=== PATIENT | female | born 1995 | race Caucasian/White ===

== ENCOUNTER 2017-08-29 18:33 | Emergency (ER) | payer SELFPAY ==
[2017-08-29 18:37] VITALS: BP 130/73; PULSE 90; TEMP 98.4; BMI 23.5
--- NOTE | 2017-08-29 18:40 | PDOC ---
History of Present Illness - General Chief Complaint: Cold Symptoms Stated Complaint: PAIN Time Seen by Provider: 08/29/17 18:39 History Source: Patient Exam Limitations: No Limitations - History of Present Illness Initial Comments: CHIEF COMPLAINT: 21 y/o afebrile female c/o chills, body aches and right sided back pain x 4 days. HISTORY OF PRESENT ILLNESS: The patient denies taking a temperature, denies cough, earache, runny nose, n/v/d, CP, SOB, abd pain, hematuria, dysuria. She was taking tylenol and motrin for her symptoms but hasn't taken anything today. Vital signs on arrival are within normal limits. REVIEW OF SYSTEMS: GENERAL/CONSTITUTIONAL: +chills. No fever. +body aches. No weakness. No weight change. HEAD, EYES, EARS, NOSE AND THROAT: No change in vision. No ear pain or discharge. No sore throat. CARDIOVASCULAR: No chest pain or shortness of breath. RESPIRATORY: No cough, wheezing, or hemoptysis. GASTROINTESTINAL: No abd pain, nausea, vomiting, diarrhea. GENITOURINARY: No dysuria, frequency, or change in urination. MUSCULOSKELETAL: +right sided back pain. No joint or muscle swelling or pain. No neck pain. SKIN: No rash or easy bruising. NEUROLOGIC: No headache, vertigo, loss of consciousness, or loss of sensation. PHYSICAL EXAM: GENERAL: The patient is awake, alert, and fully oriented, in no acute distress. She is well appearing, ambulatory, in NAD or obvious discomfort. HEAD: Normal with no signs of trauma. ENT: Pupils equal, round and reactive to light, extraocular movements intact, sclera anicteric, conjunctiva clear. Neck supple. No tonsilar erythema, edema or exudate. LUNGS: Clear to auscultation bilaterally. Normal excursion. No respiratory distress or use of accessory muscles. CV: RRR, S1/S2, no MRG. Cap refill < 2 sec. ABDOMEN: Soft, non-distended, non-tender even to deep palpation, no hepatomegaly or splenomegaly, no masses. BACK: ?right CVA TTP. No other reproducible pain. EXTREMITIES: Normal range of motion, no edema. NEUROLOGICAL: Normal speech, normal gait. CN II-XII grossly intact. PSYCH: Normal mood, normal affect. SKIN: Warm, dry, normal turgor, no rashes or lesions noted. Past History - Past Medical History Allergies/Adverse Reactions: Allergies Allergy/AdvReac Type Severity Reaction Status Date / Time No Known Allergies Allergy Verified 08/29/17 18:33 Home Medications: Ambulatory Orders Nitrofurantoin Monohyd/M-Cryst [Macrobid -] 100 mg PO BID #14 capsule 08/29/17 COPD: No - Suicide/Smoking/Psychosocial Hx Smoking History: Never smoked Have you smoked in the past 12 months: No Information on smoking cessation initiated: No Hx Alcohol Use: No Drug/Substance Use Hx: No Substance Use Type: None *Physical Exam - Vital Signs Last Vital Signs Temp Pulse Resp BP Pulse Ox 98.4 F 90 18 130/73 100 08/29/17 18:34 08/29/17 18:34 08/29/17 18:34 08/29/17 18:34 08/29/17 18:34 Medical Decision Making - Medical Decision Making A/P: 21 y/o female with viral type symptoms, unremarkable physical exam who appears well. Plan is as follows: 1. hcg/UA/culture hcg - negative UA with +nitrite, +blood and +WBCs Will treat for UTI. Pt instructed to return to the ER with any worsening or concerning symptoms. The patient verbalizes understanding of all instructions, has no further questions and is awaiting discharge. *DC/Admit/Observation/Transfer Diagnosis at time of Disposition: UTI (urinary tract infection) Qualifiers: Urinary tract infection type: acute cystitis Hematuria presence: with hematuria Qualified Code(s): N30.01 - Acute cystitis with hematuria - Discharge Dispostion Disposition: HOME Condition at time of disposition: Good - Prescriptions Prescriptions: Nitrofurantoin Monohyd/M-Cryst [Macrobid -] 100 mg PO BID #14 capsule - Referrals - Patient Instructions Printed Discharge Instructions: DI for Urinary Tract Infection (UTI) Additional Instructions: Discharge Instructions: -You have a urinary tract infection -A prescription for antibiotics has been sent to your pharmacy -Please drink at least 64oz of water daily -Return to the ER with any worsening or concerning symptoms - Post Discharge Activity Forms/Work/School Notes: Back to Work
[2017-08-29 19:14] LABS: URINE APPEARANCE CLOUDY; URINE BILIRUBIN NEGATIVE (<2.0 mg/dL); URINE BLOOD 1+ (NEGATIVE); URINE COLOR YELLOW; URINE GLUCOSE (UA) NEGATIVE (NEGATIVE); URINE KETONE NEGATIVE (NEGATIVE); URINE NITRITE POSITIVE (NEGATIVE); URINE UROBILINOGEN 4.0 E.U/dl mg/dL (0.2-1.0)
[2017-08-29 19:17] LABS: URINE LEUK ESTERASE 3+ (NEGATIVE); URINE PROTEIN 1+ (NEGATIVE)
[2017-08-29 19:18] LABS: EPI CELLS RARE /HPF (FEW); URINE BACTERIA RARE /hpf (NONE SEEN); URINE MUCUS RARE
[2017-08-29] MEDS ORDERED: NITROFURANTOIN MACROCRYSTAL 50 MG CAPSULE (FP) ONE ×2 (19:27→19:28)
[2017-08-29] MEDS ORDERED: NITROFURANTOIN MACROCRYSTAL 50 MG CAPSULE (FP) PO SCH (19:30)
== END 2017-08-29 19:30 | disposition home or self-care (01) ==
LOC: JERFT 18:33
DX: N30.01 Acute cystitis with hematuria (principal)
CPT/HCPCS: 81003; 81015; 84703; 87086; 87186; 99281-25

== ENCOUNTER 2017-09-16 20:55 | Inpatient (IN) | payer SELFPAY ==
[2017-09-16 21:14] VITALS: BMI 23.5
--- NOTE | 2017-09-16 21:28 | PDOC ---
History of Present Illness - General History Source: Patient Exam Limitations: No Limitations - History of Present Illness Initial Comments: 09/17/17 00:09 Patient is a 21 year old female with no significant past medical history who presents to the ED with complaints of right flank pain that began yesterday. Patient reports being diagnosed with UTI 3 weeks ago, stating she was prescribed antibiotics. She reports experiencing relief after finishing prescription with no further symptoms. Patient reports experiencing sudden right flank pain yesterday afternoon that she states was not severe, making her pay no serious mind to it. She reports waking up this morning with increased right flank pain, which she states began to worry her, prompting her to come into the ED for further evaluation. Denies chest pain, Sob. Denies nausea, vomiting. Denies trauma to affected area. Denies contact with sick individuals, out of state travelling. Denies any other symptoms. Allergies: None Social history: No smoking. No alcohol. No illicit drugs. Surgical history: None PMD: None <Armando Hong - Last Filed: 09/17/17 00:09> <Maggie Mack - Last Filed: 09/17/17 00:50> - General Chief Complaint: Pain Stated Complaint: POSSIBLE UTI Time Seen by Provider: 09/16/17 21:27 Past History <Armando Hong - Last Filed: 09/17/17 00:09> - Past Medical History COPD: No - Suicide/Smoking/Psychosocial Hx Smoking History: Never smoked Have you smoked in the past 12 months: No Hx Alcohol Use: No Drug/Substance Use Hx: No Substance Use Type: None <Maggie Mack - Last Filed: 09/17/17 00:50> - Past Medical History Allergies/Adverse Reactions: Allergies Allergy/AdvReac Type Severity Reaction Status Date / Time No Known Allergies Allergy Verified 09/16/17 21:11 Home Medications: Ambulatory Orders Nitrofurantoin Monohyd/M-Cryst [Macrobid -] 100 mg PO BID #14 capsule 08/29/17 Review of Systems - Review of Systems Able to Perform ROS?: Yes Comments:: 09/17/17 00:09 GENERAL/CONSTITUTIONAL: No fever or chills. No weakness. HEAD, EYES, EARS, NOSE AND THROAT: No change in vision. No ear pain or discharge. No sore throat. CARDIOVASCULAR: No chest pain or shortness of breath. RESPIRATORY: No cough, wheezing, or hemoptysis. GASTROINTESTINAL: No nausea, vomiting, diarrhea or constipation. GENITOURINARY: No dysuria, frequency, or change in urination. MUSCULOSKELETAL: +Right flank pain. No joint swelling or pain. No neck or back pain. SKIN: No rash NEUROLOGIC: No headache, vertigo, loss of consciousness, or change in strength/ sensation. ENDOCRINE: No increased thirst. No abnormal weight change. HEMATOLOGIC/LYMPHATIC: No anemia, easy bleeding, or history of blood clots. ALLERGIC/IMMUNOLOGIC: No hives or skin allergy. <Armando Hong - Last Filed: 09/17/17 00:09> *Physical Exam - Vital Signs Last Vital Signs Temp Pulse Resp BP Pulse Ox 100.2 F H 107 H 18 140/73 100 09/16/17 21:12 09/16/17 21:12 09/16/17 21:12 09/16/17 21:12 09/16/17 21:12 - Physical Exam Comments: 09/17/17 00:09 GENERAL: Awake, alert, and fully oriented, in no acute distress HEAD: No signs of trauma EYES: PERRLA, EOMI, sclera anicteric, conjunctiva clear ENT: Auricles normal inspection, hearing grossly normal, nares patent, oropharynx clear without exudates. Moist mucosa NECK: Normal ROM, supple, no lymphadenopathy, JVD, or masses LUNGS: Breath sounds equal, clear to auscultation bilaterally. No wheezes, and no crackles HEART: Regular rate and rhythm, normal S1 and S2, no murmurs, rubs or gallops ABDOMEN: +Superpubic mild tenderness. Soft, nontender, normoactive bowel sounds. No guarding, no rebound. No masses MUSCULOSKELETAL: +Right flank pain. EXTREMITIES: Normal range of motion, no edema. No clubbing or cyanosis. No cords, erythema, or tenderness NEUROLOGICAL: Cranial nerves II through XII grossly intact. Normal speech, normal gait SKIN: +Warm to touch. Dry, normal turgor, no rashes or lesions noted. <Armando Hong - Last Filed: 09/17/17 00:09> - Vital Signs Last Vital Signs Temp Pulse Resp BP Pulse Ox 100.2 F H 107 H 18 140/73 100 09/16/17 21:12 09/16/17 21:12 09/16/17 21:12 09/16/17 21:12 09/16/17 21:12 <Maggie Mack - Last Filed: 09/17/17 00:50> ED Treatment Course - LABORATORY CBC & Chemistry Diagram: 09/16/17 21:30 09/16/17 21:30 - ADDITIONAL ORDERS Additional order review: Laboratory Results 09/16/17 09/16/17 21:30 21:27 Sodium 134 L Potassium 3.6 Chloride 103 Carbon Dioxide 24 Anion Gap 7 L BUN 8 Creatinine 0.7 Creat Clearance w eGFR > 60 Random Glucose 118 H Calcium 8.7 Total Bilirubin 0.4 AST 14 L ALT 25 Alkaline Phosphatase 77 Total Protein 7.6 Albumin 3.9 Urine Color Yellow Urine Appearance Cloudy Urine pH 6.0 Ur Specific [place] 1.010 Urine Protein 1+ H Urine Glucose (UA) Negative Urine Ketones Negative Urine Blood 2+ H Urine Nitrite Positive Urine Bilirubin Negative Urine Urobilinogen Negative Ur Leukocyte Esterase 3+ H Urine WBC (Auto) 847 Urine RBC (Auto) 7 Urine Bacteria Moderate Urine Mucus Rare Urine HCG, Qual Negative 09/16/17 21:30 RBC 4.38 MCV 80.4 MCHC 34.5 RDW 19.9 H MPV 7.3 L Neutrophils % 84.4 H Lymphocytes % 7.4 L Monocytes % 7.9 Eosinophils % 0.1 Basophils % 0.2 - Medications Given in the ED: ED Medications Discontinued Medications Generic Name Dose Route Start Last Admin Trade Name Freq PRN Reason Stop Dose Admin Acetaminophen 1,000 mg 09/16/17 22:42 09/16/17 22:48 Tylenol - PO 09/16/17 22:43 1,000 mg ONCE ONE Administration Ceftriaxone Sodium 1 mg/ 50 mls @ 100 mls/hr 09/16/17 21:29 09/16/17 21:56 Dextrose IVPB 09/16/17 21:58 Not Given ONCE ONE Ceftriaxone Sodium 1,000 mg/ 50 mls @ 100 mls/hr 09/16/17 21:36 09/16/17 21: 56 Dextrose IVPB 09/16/17 21:58 100 mls/hr ONCE ONE Administration Ibuprofen 600 mg 09/16/17 21:32 09/16/17 21:56 Motrin - PO 09/16/17 21:33 600 mg ONCE ONE Administration <Armando Hong - Last Filed: 09/17/17 00:09> - LABORATORY CBC & Chemistry Diagram: 09/16/17 21:30 09/16/17 21:30 <Maggie Mack - Last Filed: 09/17/17 00:50> Medical Decision Making - Medical Decision Making 09/16/17 21:30 Pt comes with fever and UTI symptoms. She was here for cystitis 1 month ago and at the time she was treated with macrobid BID x 7 days. Now with repeat symptoms. The E.coli that grew in her urine last time was not resistant to the macrobid. Pt will have UA and culture sent again today, as well as basic blood lab tests. We will treat with rocephin in the ER and likely send pt home with keflex. <Maggie Mack - Last Filed: 09/17/17 00:50> *DC/Admit/Observation/Transfer - Attestations Scribe Attestion: 09/17/17 00:10 Documentation prepared by Armando Hong, acting as medical secretary for Maggie Mack MD/DO. <Armando Hong - Last Filed: 09/17/17 00:09> - Discharge Dispostion Admit: Yes <Maggie Mack - Last Filed: 09/17/17 00:50> Diagnosis at time of Disposition: Pyelonephritis, Kidney stones, UTI (urinary tract infection) - Discharge Dispostion Condition at time of disposition: Guarded
[2017-09-16] MEDS ORDERED: CEFTRIAXONE 1 MG in DEXTROSE 5%-WATER - 50 ML IVPB ONE (21:29)
[2017-09-16] MEDS ORDERED: IBUPROFEN 600 MG TABLET (FP) PO ONE ×2 (21:32→21:52)
[2017-09-16] MEDS ORDERED: CEFTRIAXONE 1 GM/50 ML BAG ONE (21:36)
[2017-09-16] MEDS ORDERED: CEFTRIAXONE 1,000 MG in DEXTROSE 5%-WATER - 50 ML IVPB ONE (21:36)
[2017-09-16 21:38] LABS: HCG,QUALITATIVE URINE NEGATIVE
[2017-09-16 21:42] LABS: URINE APPEARANCE CLOUDY; URINE BILIRUBIN NEGATIVE (<2.0 mg/dL); URINE COLOR YELLOW; URINE GLUCOSE (UA) NEGATIVE (NEGATIVE); URINE KETONE NEGATIVE (NEGATIVE); URINE NITRITE POSITIVE (NEGATIVE); URINE UROBILINOGEN NEGATIVE mg/dL (0.2-1.0)
[2017-09-16 21:47] LABS: URINE LEUK ESTERASE 3+ (NEGATIVE); URINE PROTEIN 1+ (NEGATIVE)
[2017-09-16 21:56] LABS: BASO % 0.2 % (0-2.0); EOS % 0.1 % (0-4.5); HEMATOCRIT 35.2 % (32.4-45.2); HEMOGLOBIN 12.1 GM/dL (10.7-15.3); LYMPH % 7.4 % (8-40); MCH 27.7 pg (25.7-33.7); MCHC 34.5 g/dl (32.0-36.0); MEAN CELL VOLUME 80.4 fl (80-96); MEAN PLT VOLUME 7.3 fl (7.5-11.1); MONO % 7.9 % (3.8-10.2); NEUT % 84.4 % (42.8-82.8); PLATELET COUNT 254 K/MM3 (134-434); RBC 4.38 M/mm3 (3.60-5.2); RDW 19.9 % (11.6-15.6); WHITE BLOOD COUNT 12.2 K/mm3 (4.0-10.0)
[2017-09-16 22:17] LABS: URINE BACTERIA MODERATE /hpf (NONE SEEN); URINE MUCUS RARE
[2017-09-16 22:26] LABS: ALBUMIN 3.9 g/dl (3.4-5.0); ANION GAP 7 (8-16); BILIRUBIN,TOTAL 0.4 mg/dL (0.2-1.0); BLOOD UREA NITROGEN 8 mg/dL (7-18); CALCIUM 8.7 mg/dL (8.5-10.1); CHLORIDE 103 mmol/L (98-107); CO2 24 mmol/L (21-32); CREATININE 0.7 mg/dL (0.55-1.02); GLUCOSE,RANDOM 118 mg/dL (74-106); POTASSIUM 3.6 mmol/L (3.5-5.1); SGOT/AST 14 U/L (15-37); SGPT/ALT 25 U/L (12-78); SODIUM 134 mmol/L (136-145); TOT PROT 7.6 g/dl (6.4-8.2)
[2017-09-16 22:27] LABS: ALK PHOS 77 U/L (45-117)
[2017-09-16] MEDS ORDERED: ACETAMINOPHEN 500 MG TABLET (FP) PO ONE (22:42)
--- NOTE | 2017-09-17 01:25 | HP ---
CHIEF COMPLAINT: R flank pain PCP: none HISTORY OF PRESENT ILLNESS: 21yo healthy young woman who presents with 1 day of R flank and nausea. Patient was last here on 08/29 for symptomatic UTI and completed a 7 day course of Macrobid 100mg BID. Patient denies missing any doses of antibiotics. She reports her symptoms resolved with the completion of the abx course. She was at her [employer] when yesterday while at work she had acute onset R flank pain with some nausea, but no emesis. She denies any prior UTIs or urinary abnormalities. No fever or chills. LMP 08/19/17. Last sexually active 1 month ago. No h/o STIs. ER course was notable for: (1) Tmax 100.2, HR 107 (2) UA c/w infection: pyuria with 3+ LE (3) Renal U/S: No hydronephrosis bilaterally, R kidney stone w/ 2 x adjacent 1cm foci of increased echogenicity w/o distal acoustical shadowing, equivocal non-obstructing R renal calculi Recent Travel: none PAST MEDICAL HISTORY: see above PAST SURGICAL HISTORY: Social History: Smoking: never Alcohol: none Drugs: none Family History: no family h/o renal stones Allergies: NKDA HOME MEDICATIONS: Home Medications Medication Instructions Recorded Nitrofurantoin Monohyd/M-Cryst 100 mg PO BID #14 capsule 08/29/17 [Macrobid -] REVIEW OF SYSTEMS CONSTITUTIONAL: Absent: fever, chills, diaphoresis, generalized weakness, malaise, loss of appetite, weight change HEENT: Absent: rhinorrhea, nasal congestion, throat pain, throat swelling, difficulty swallowing, mouth swelling, ear pain, eye pain, visual changes CARDIOVASCULAR: Absent: chest pain, syncope, palpitations, irregular heart rate, lightheadedness , peripheral edema RESPIRATORY: Absent: cough, shortness of breath, dyspnea with exertion, orthopnea, wheezing, stridor, hemoptysis GASTROINTESTINAL: +nausea Absent: abdominal pain, abdominal distension, vomiting, diarrhea, constipation, melena, hematochezia GENITOURINARY: +dysuria, R flank pain Absent: frequency, urgency, hesitancy, hematuria, genital pain MUSCULOSKELETAL: Absent: myalgia, arthralgia, joint swelling, back pain, neck pain SKIN: Absent: rash, itching, pallor HEMATOLOGIC/IMMUNOLOGIC: Absent: easy bleeding, easy bruising, lymphadenopathy, frequent infections ENDOCRINE: Absent: unexplained weight gain, unexplained weight loss, heat intolerance, cold intolerance NEUROLOGIC: Absent: headache, focal weakness or paresthesias, dizziness, unsteady gait, seizure, mental status changes, bladder or bowel incontinence PSYCHIATRIC: Absent: anxiety, depression, suicidal or homicidal ideation, hallucinations. PHYSICAL EXAMINATION Vital Signs - 24 hr 09/16/17 21:12 Temperature 100.2 F H Pulse Rate 107 H Respiratory 18 Rate Blood Pressure 140/73 O2 Sat by Pulse 100 Oximetry (%) GENERAL: lying comfortably in bed, aaox3, nad HEENT: PERRLA, sclera anicteric, conjunctiva clear, oropharynx clear without exudates, mmm LUNGS: CTAB HEART: rrr, normal s1/s2, no m/r/g ABDOMEN: soft, ntnd, +positive bowel sounds : +suprapubic ttp, R CVA tenderness LOWER EXTREMITIES: wwp, no peripheral edema CBC, BMP 09/16/17 21:30 09/16/17 21:30 Urine Color Yellow 09/16/17 21: Urine Appearance Cloudy 09/16/17 21:27 Urine pH 6.0 (5.0-8.0) 09/16/17 21: Ur Specific [place] 1.010 (1.001-1.035) 09/16/17 21: Urine Protein 1+ (NEGATIVE) H 09/16/17 21:27 Urine Glucose (UA) Negative (NEGATIVE) 09/16/17 21:27 Urine Ketones Negative (NEGATIVE) 09/16/17 21:27 Urine Blood 2+ (NEGATIVE) H 09/16/17 21: Urine Nitrite Positive (NEGATIVE) 09/16/17 21:27 Urine Bilirubin Negative (<2.0 mg/dL) 09/16/17 21:27 Ur Leukocyte Esterase 3+ (NEGATIVE) H 09/16/17 21:27 Urine Bacteria Moderate /hpf (NONE SEEN) 09/16/17 21: Urine Mucus Rare 09/16/17 21:27 ASSESSMENT/PLAN: 21yo young woman with recent PMH of UTI s/p 7 day abx course with resolution of symptoms who presents with 1 day of R flank plan and found to be septic (Tmax 100.2, HR107) possibly 2/2 pyelonephritis c/b R renal stones. #sepsis 2/2 pyelonephritis with possible 2x 1cm Renal calculi -Urology consulted -CT A/P w/o contrast to evaluate possible R calculi -pain control with Tylenol PRN, Morphine PRN -Zofran PRN for nausea -IVF of NS@150cc/hr -Ceftriaxone 2gm IVP Daily -f/u Urine and blood cultures -f/u Gonorrhea/Chlamydia #FEN NS@150cc/hr lytes wnl Regular diet #DISPO: m/s FULL code Visit type - Emergency Visit Emergency Visit: Yes ED Registration Date: 09/17/17 Care time: The patient presented to the Emergency Department on the above date and was hospitalized for further evaluation of their emergent condition. - New Patient This patient is new to me today: Yes Date on this admission: 09/17/17 - Critical Care Critical Care patient: No Hospitalist Screening - Colonoscopy Questionnaire Colonoscopy Questionnaire: Colonoscopy Questionnaire - Patient: 50 - 75 years old and never had a screening colonoscopy: No History of colon or rectal polyps, or CA: Unknown History of IBD, Crohn's disease or UC: Unknown History of abdominal radiation therapy as a child: Unknown - Relative: 1 with colon or rectal CA, or polyps at age 60 or younger: Unknown Colon or rectal CA diagnosed at age 45 or younger: Unknown Multiple relatives with colon or rectal CA: Unknown - Outcome: Screening Result: Negative Screen
[2017-09-17] MEDS ORDERED: ONDANSETRON 4 MG/2 ML VIAL IVPUSH PRN (03:00)
[2017-09-17] MEDS ORDERED: SODIUM CHLORIDE 1,000 ML IV SCH (03:00)
[2017-09-17] MEDS ORDERED: morphine SULFATE 4 MG/ML VIAL IVPUSH PRN (03:32)
[2017-09-17] MEDS: SODIUM CHLORIDE 1,000 ML IV SCH ×3 (04:06→20:04)
--- NOTE | 2017-09-17 04:37 | PN ---
Teaching Attending Note Name of Resident: Kita Iqbal ATTENDING PHYSICIAN STATEMENT I saw and evaluated the patient. Chart, data reviewed. I reviewed the resident's note and discussed the case with the resident. I agree with the resident's findings and plan as documented. SUBJECTIVE: 21yo healthy young woman c/o with 1 day of R flank and nausea, low grade fevers. Recently completed a 7 day course of Macrobid 100mg BID for cystitis. Denied any allergies to antibiotics. OBJECTIVE: Last Vital Signs Temp Pulse Resp BP Pulse Ox 98.3 F 93 H 18 121/75 100 09/17/17 01:04 09/17/17 01:04 09/17/17 01:04 09/17/17 01:04 09/17/17 01:04 General- nad, nontoxic appearing heent- moist oral mucosa neck -supple cv -s1+s2+rrr chest - cta b/l abdomen -soft, BS+ , right flank tenderness skin- no rashes Abnormal Lab Results 09/16/17 09/16/17 09/16/17 21:27 21:30 21:30 WBC 12.2 H RDW 19.9 H MPV 7.3 L Neutrophils % 84.4 H Lymphocytes % 7.4 L Sodium 134 L Anion Gap 7 L Random Glucose 118 H AST 14 L Urine Protein 1+ H Urine Blood 2+ H Ur Leukocyte Esterase 3+ H renal u/s -equivocal visualization of 2 renal calculi 1cm diameter ASSESSMENT AND PLAN: #Sepsis 2/2 right sided pyelonephritis with possible nephrolithiasis. -admit to med/surg -blood cultures x2 -urine culture -lactate level -CT scan of abdomen/pelvis to better evaluate for nephrolithiasis -ceftriaxone 2g IV q24hrs -if nephrolithiasis, will obtain urology consult -IV fluid hydration -heparin sc for dvt prophylaxis
[2017-09-17] MEDS: ACETAMINOPHEN 325 MG TABLET (FP) PO PRN ×2 (04:42→20:52)
--- NOTE | 2017-09-17 08:37 | PN ---
Physical Exam: SUBJECTIVE: Patient seen and examined Patient is comfortable but c/o CVA tenderness OBJECTIVE: Vital Signs Temperature 98.7 F 09/17/17 06:20 Pulse Rate 93 H 09/17/17 03:30 Respiratory Rate 18 09/17/17 03:30 Blood Pressure 121/75 09/17/17 03:30 O2 Sat by Pulse Oximetry (%) 100 09/17/17 01:04 GENERAL: The patient is awake, alert, and fully oriented, in no acute distress. HEAD: Normal with no signs of trauma. EYES: PERRL, extraocular movements intact, sclera anicteric, conjunctiva clear. ENT: Ears normal, oropharynx clear without exudates, moist mucous membranes. NECK: Trachea midline, full range of motion, supple. LUNGS: Breath sounds equal, clear to auscultation bilaterally, no wheezes, no crackles, no accessory muscle use. HEART: Regular rate and rhythm, S1, S2 without murmur, rub or gallop. ABDOMEN: Soft, nontender, nondistended, normoactive bowel sounds, no guarding, no rebound, no hepatosplenomegaly, no masses. mild CVA tendernes. EXTREMITIES: 2+ pulses, warm, well-perfused, no edema. NEUROLOGICAL: Cranial nerves II through XII grossly intact. Normal speech, gait is stable . PSYCH: Normal mood, normal affect. SKIN: Warm, dry, normal turgor, no rashes or lesions noted CBCD WBC 12.2 K/mm3 (4.0-10.0) H 09/16/17 21:30 RBC 4.38 M/mm3 (3.60-5.2) 09/16/17 21:30 Hgb 12.1 GM/dL (10.7-15.3) 09/16/17 21:30 Hct 35.2 % (32.4-45.2) 09/16/17 21:30 MCV 80.4 fl (80-96) 09/16/17 21:30 MCHC 34.5 g/dl (32.0-36.0) 09/16/17 21:30 RDW 19.9 % (11.6-15.6) H 09/16/17 21:30 Plt Count 254 K/MM3 (134-434) 09/16/17 21:30 MPV 7.3 fl (7.5-11.1) L 09/16/17 21:30 CMP Sodium 134 mmol/L (136-145) L 09/16/17 21:30 Potassium 3.6 mmol/L (3.5-5.1) 09/16/17 21:30 Chloride 103 mmol/L (98-107) 09/16/17 21:30 Carbon Dioxide 24 mmol/L (21-32) 09/16/17 21:30 Anion Gap 7 (8-16) L 09/16/17 21:30 BUN 8 mg/dL (7-18) 09/16/17 21:30 Creatinine 0.7 mg/dL (0.55-1.02) 09/16/17 21:30 Creat Clearance w eGFR > 60 (>60) 09/16/17 21:30 Random Glucose 118 mg/dL (74-106) H 09/16/17 21:30 Calcium 8.7 mg/dL (8.5-10.1) 09/16/17 21:30 Total Bilirubin 0.4 mg/dL (0.2-1.0) 09/16/17 21:30 AST 14 U/L (15-37) L 09/16/17 21:30 ALT 25 U/L (12-78) 09/16/17 21:30 Alkaline Phosphatase 77 U/L (45-117) 09/16/17 21:30 Total Protein 7.6 g/dl (6.4-8.2) 09/16/17 21:30 Albumin 3.9 g/dl (3.4-5.0) 09/16/17 21:30 Active Medications Generic Name Dose Route Start Last Admin Trade Name Freq PRN Reason Stop Dose Admin Acetaminophen 650 mg 09/17/17 02:53 09/17/17 04:42 Tylenol - PO 650 mg Q4H PRN Administration PAIN OR FEVER Enoxaparin Sodium 40 mg 09/17/17 10:00 Lovenox - SQ DAILY SURINDER Sodium Chloride 1,000 mls @ 150 mls/hr 09/17/17 03:27 09/17/17 04:06 Normal Saline - IV 150 mls/hr ASDIR SURINDER Administration Ceftriaxone Sodium 2 gm/ 100 mls @ 200 mls/hr 09/17/17 10:00 Dextrose IVPB DAILY SURINDER Morphine Sulfate 1 mg 09/17/17 03:32 09/17/17 04:45 Morphine Sulfate IVPUSH 1 mg Q6H PRN Administration PAIN LEVEL 6-10 Ondansetron HCl 4 mg 09/17/17 03:00 Zofran Injection IVPUSH Q6H PRN NAUSEA Home Medications Medication Instructions Recorded NK [No Known Home Medication] 09/17/17 ASSESSMENT/PLAN: Patient is a 21yo young woman with recent hx of UTI s/p 7 day abx course with resolution of symptoms who presents with 1 day of Right flank plan and found to be septic (Tmax 100.2, HR107) due to having pyelonephritis with Right renal stones on US around 1cm. #Sepsis due to pyelonephritis with 1cm Renal calculi on US, CT negative for any stones Urology consulted, IVF of NS@150cc/hr, Ceftriaxone 2gm IVP Daily, f/u Urine and blood cultures, f/u Gonorrhea/Chlamydia DVT Px: Lovenox FULL code Visit type - Emergency Visit Emergency Visit: Yes ED Registration Date: 09/17/17 Care time: The patient presented to the Emergency Department on the above date and was hospitalized for further evaluation of their emergent condition. - New Patient This patient is new to me today: Yes Date on this admission: 09/18/17 - Critical Care Critical Care patient: No - Discharge Referral Referred to [facility] No
[2017-09-17] MEDS ORDERED: DEXTROSE 5%-WATER 100 ML IVPB ONE (09:50)
[2017-09-17] MEDS: CEFTRIAXONE 2 GM in DEXTROSE 5%-WATER 100 ML IVPB SCH (09:54)
[2017-09-17] MEDS: ENOXAPARIN NA (PORCINE) 40 MG/0.4 ML DISP.SYRIN SQ SCH (09:54)
[2017-09-17] MEDS ORDERED: CEFTRIAXONE 2 MG in DEXTROSE 5%-WATER - 50 ML IVPB SCH (10:00)
--- NOTE | 2017-09-17 12:52 | PN ---
Progress Note (short form) - Note Progress Note: ID Consult dictated R pyelonephritis ? partially treated R/O sepsis secondary to source Await cultures Continue ceftriaxone
--- NOTE | 2017-09-17 13:44 | CONS ---
DATE OF CONSULTATION: 09/17/2017 This patient is a 21-year-old female evaluated for pyelonephritis. She reports that approximately 3 weeks ago she had developed symptoms of a urinary tract infection. She had complained of urinary frequency and had right flank discomfort. She was prescribed Macrobid. Cultures at that time were positive E. coli, which was sensitive to Macrobid. She reports completing a 7-day course. Patient felt well and was able to resume her regular activities. She now returns with a 1-day complaint of right-sided back pain. She states the pain became severe to the point where she presented to the emergency room. In the emergency room, urinalysis showed many white cells. She was noted to have a low-grade fever and an elevated white blood cell count. Cultures were obtained and she was empirically treated with ceftriaxone. She denies any dysuria or hematuria. She denies any high-grade fever or shaking chills. PAST MEDICAL HISTORY: Negative. ALLERGIES: No known allergies. MEDICATIONS: Include Tylenol, ceftriaxone, Lovenox. SOCIAL HISTORY: She lives at home, is employed at [employer], denies tobacco, alcohol or illicit drug use. HIV status is not documented. SYSTEMS REVIEW: Neurologic: No loss of consciousness, seizure activity, focal weakness. Cardiac: Negative chest pain or palpitations. Respiratory: Negative cough or sputum production. Gastrointestinal: Negative vomiting or diarrhea. Genitourinary: As per HPI. LABORATORY DATA: White count 12.2, hematocrit 35.2, platelet count 254. Creatinine 0.7. Urinalysis 847 white cells. Blood and urine cultures are pending. PHYSICAL EXAMINATION: General: The patient is awake in moderate distress secondary to right flank pain. Vitals: Temperature 98.1, blood pressure 127/73, pulse 100 regular, respirations 18 per minute. T max 100.2. HEENT: Sclera anicteric. Heart: Sounds S1, S2. Lungs: Clear. Abdomen: Soft. There is right-sided abdominal and right flank tenderness to palpation. Extremities: Negative for edema. IMPRESSION: 1. Acute right pyelonephritis. 2. Possible sepsis, secondary to genitourinary source. Suspect patient has partially treated right pyelonephritis. She had presented with similar symptoms 3 weeks ago with flank pain, which has no recurred. No evidence of CAT scan for nephrolithiasis or obstructive uropathy. No hydronephrosis. Continue IV fluid hydration. Pending cultures empiric antibiotic coverage with ceftriaxone 2 g IV piggyback every 24 hours. Urology evaluation. Analgesics. Will follow. Thank you for the kind referral. FRANCO KUMAR M.D. SYDNEE/[id number]
[2017-09-18] MEDS: SODIUM CHLORIDE 1,000 ML IV SCH ×4 (06:19→17:39)
[2017-09-18 07:31] LABS: BASO % 0.3 % (0-2.0); EOS % 0.3 % (0-4.5); HEMATOCRIT 32.4 % (32.4-45.2); HEMOGLOBIN 11.2 GM/dL (10.7-15.3); LYMPH % 12.7 % (8-40); MCH 27.8 pg (25.7-33.7); MCHC 34.5 g/dl (32.0-36.0); MEAN CELL VOLUME 80.5 fl (80-96); MEAN PLT VOLUME 7.7 fl (7.5-11.1); MONO % 13.4 % (3.8-10.2); NEUT % 73.3 % (42.8-82.8); PLATELET COUNT 191 K/MM3 (134-434); RBC 4.03 M/mm3 (3.60-5.2); RDW 20.7 % (11.6-15.6); WHITE BLOOD COUNT 9.6 K/mm3 (4.0-10.0)
[2017-09-18 08:01] LABS: ANION GAP 9 (8-16); BLOOD UREA NITROGEN 5 mg/dL (7-18); CALCIUM 7.9 mg/dL (8.5-10.1); CHLORIDE 108 mmol/L (98-107); CO2 24 mmol/L (21-32); CREATININE 0.5 mg/dL (0.55-1.02); GLUCOSE,RANDOM 87 mg/dL (74-106); POTASSIUM 3.6 mmol/L (3.5-5.1); SGOT/AST 21 U/L (15-37); SGPT/ALT 32 U/L (12-78); SODIUM 141 mmol/L (136-145)
[2017-09-18 08:02] LABS: ALBUMIN 2.8 g/dl (3.4-5.0); ALK PHOS 77 U/L (45-117); BILIRUBIN,TOTAL 0.4 mg/dL (0.2-1.0); TOT PROT 6.1 g/dl (6.4-8.2)
--- NOTE | 2017-09-18 08:57 | PN ---
Physical Exam: SUBJECTIVE: Patient seen and examined - fever overnight to 101.2. Feeling well, endorses mild nausea and LL back pain , worse with abdominal torsion. Denies dysuria or any other urinary symptoms. Denies f/c/v/d, SULTANA, cp, sob, ab pain, LE edema, FNDs OBJECTIVE: Vital Signs Intake & Output 09/15/17 09/16/17 09/17/17 09/18/17 23:59 23:59 23:59 23:59 Intake Total 1050 3200 1050 Balance 1050 3200 1050 Weight 68.039 kg 68.039 kg Period Temp Pulse Resp BP Sys/Delcid Pulse Ox Last 24 Hr 98.1 F-101.2 F 79-116 18-20 110-148/67-83 96-98 GENERAL: young woman, NAD HEAD: NCAT EYES: PERRL, extraocular movements intact, sclera anicteric, conjunctiva clear. No ptosis. NECK: Trachea midline, full range of motion, supple. LUNGS: CTABL HEART: RRR, S1, S2 without murmur, rub or gallop. ABDOMEN: Soft, nontender, nondistended, normoactive bowel sounds, no guarding, no rebound, no hepatosplenomegaly, no masses. Neg CVA tenderness EXTREMITIES: 2+ pulses, warm, well-perfused, no edema. NEUROLOGICAL: Cranial nerves II through XII grossly intact. Normal speech, gait not observed. Laboratory Results - last 24 hr CBC, BMP 09/18/17 06:00 09/18/17 06:00 09/18/17 09/18/17 06:00 06:00 WBC 9.6 RBC 4.03 Hgb 11.2 Hct 32.4 MCV 80.5 MCH 27.8 MCHC 34.5 RDW 20.7 H Plt Count 191 D MPV 7.7 Neutrophils % 73.3 Lymphocytes % 12.7 D Monocytes % 13.4 H Eosinophils % 0.3 D Basophils % 0.3 Hypersegmented Neuts Cancelled Hypochromia Cancelled Toxic Granulation Cancelled Dohle Bodies Cancelled Polychromasia Cancelled Poikilocytosis Cancelled Basophilic Stippling Cancelled Anisocytosis Cancelled Microcytosis Cancelled Macrocytosis Cancelled Spherocytes Cancelled Siderocytes Cancelled Sickle Cells Cancelled Target Cells Cancelled Tear Drop Cells Cancelled Ovalocytes Cancelled Stomatocytes Cancelled Helmet Cells Cancelled [place] Bodies Cancelled Busy Rings Cancelled Evaristo Cells Cancelled Acanthocytes (Spur) Cancelled Rouleaux Cancelled Fragmented RBCs Cancelled Schistocytes Cancelled Morphology Comment Cancelled Sodium 141 Potassium 3.6 Chloride 108 H Carbon Dioxide 24 Anion Gap 9 BUN 5 L Creatinine 0.5 L Creat Clearance w eGFR > 60 Random Glucose 87 Calcium 7.9 L Total Bilirubin 0.4 AST 21 ALT 32 Alkaline Phosphatase 77 Total Protein 6.1 L Albumin 2.8 L Active Medications Generic Name Dose Route Start Last Admin Trade Name Freq PRN Reason Stop Dose Admin Acetaminophen 650 mg 09/17/17 02:53 09/17/17 20:52 Tylenol - PO 650 mg Q4H PRN Administration PAIN OR FEVER Enoxaparin Sodium 40 mg 09/17/17 10:00 09/17/17 09:54 Lovenox - SQ 40 mg DAILY SURINDER Administration Sodium Chloride 1,000 mls @ 150 mls/hr 09/17/17 03:27 09/18/17 06:19 Normal Saline - IV 150 mls/hr ASDIR SURINDER Administration Ceftriaxone Sodium 2 gm/ 100 mls @ 200 mls/hr 09/17/17 10:00 09/17/17 09:54 Dextrose IVPB 200 mls/hr DAILY SURINDER Administration Microbiology 09/17/17 04:30 Blood - Peripheral Venous Blood Culture - Preliminary NO GROWTH OBTAINED AFTER 24 HOURS, INCUBATION TO CONTINUE FOR 4 DAYS. 09/17/17 04:30 Blood - Peripheral Venous Blood Culture - Preliminary NO GROWTH OBTAINED AFTER 24 HOURS, INCUBATION TO CONTINUE FOR 4 DAYS. Renal U/S: No hydronephrosis bilaterally, R kidney stone w/ 2 x adjacent 1cm foci of increased echogenicity w/o distal acoustical shadowing, equivocal non- obstructing R renal calculi CT abdomen/pelvis 09/17 - unremarkable. no notable pathology ASSESSMENT/PLAN: 21yo young woman with recent PMH of UTI s/p 7 day abx course with resolution of symptoms who presents with 1 day of R flank plan and found to be septic (Tmax 100.2, HR107) possibly 2/2 pyelonephritis c/b R renal stones. #Sepsis 2/2 pyelonephritis - UA +, urine cultures + LF GNR -Urology consulted -pain control with Tylenol PRN, Morphine PRN -Zofran PRN for nausea -IVF of NS@150cc/hr -Ceftriaxone 2gm IVP Daily, day 2 -awaiting final sensitivities for discharge on PO abx -f/u Gonorrhea/Chlamydia panel - ID consulted, presumptive 14 day course of levaquin on discharge however will adjust pending final sensitivities. - WBC resolved, fever to 101.2 yesterday #FEN NS@150cc/hr lytes wnl Regular diet #PPX lovenox Plan discussed with attending, Dr. Armando Gonzalez, PGY1 Visit type - Emergency Visit Emergency Visit: Yes ED Registration Date: 09/17/17 Care time: The patient presented to the Emergency Department on the above date and was hospitalized for further evaluation of their emergent condition. - New Patient This patient is new to me today: Yes Date on this admission: 09/18/17 - Critical Care Critical Care patient: No - Discharge Referral Referred to [facility] No
[2017-09-18] MEDS ORDERED: DEXTROSE 5%-WATER 200 ML IVPB ONE (09:01)
[2017-09-18] MEDS: ENOXAPARIN NA (PORCINE) 40 MG/0.4 ML DISP.SYRIN SQ SCH (09:17)
[2017-09-18] MEDS: CEFTRIAXONE 2 GM in DEXTROSE 5%-WATER 100 ML IVPB SCH (09:17)
--- NOTE | 2017-09-18 12:26 | PN ---
Progress Note, Physician History of Present Illness: C/O L flank pain No c/o dysuria/ hematuria No c/o fever/ chills Febrile past 24hr BC (-) Urine c/s GNR - Current Medication List Current Medications: Active Medications Acetaminophen (Tylenol -) 650 mg PO Q4H PRN PRN Reason: PAIN OR FEVER Last Admin: 09/17/17 20:52 Dose: 650 mg Enoxaparin Sodium (Lovenox -) 40 mg SQ DAILY [facility] Last Admin: 09/18/17 09:17 Dose: 40 mg Sodium Chloride (Normal Saline -) 1,000 mls @ 150 mls/hr IV ASDIR [facility] Last Admin: 09/18/17 09:17 Dose: 150 mls/hr Ceftriaxone Sodium 2 gm/ (Dextrose) 100 mls @ 200 mls/hr IVPB DAILY [facility] Last Admin: 09/18/17 09:17 Dose: 200 mls/hr - Objective Vital Signs: Vital Signs Temperature 99.1 F 09/18/17 09:00 Pulse Rate 103 H 09/18/17 09:00 Respiratory Rate 18 09/18/17 09:00 Blood Pressure 129/78 09/18/17 09:00 O2 Sat by Pulse Oximetry (%) 100 09/18/17 09:00 Constitutional: Yes: No Distress Cardiovascular: Yes: Regular Rate and Rhythm, S1, S2 Respiratory: Yes: CTA Bilaterally Gastrointestinal: Yes: Normal Bowel Sounds, Soft. No: Tenderness Genitourinary: Yes: CVA Tenderness - Left Labs: CBC, BMP 09/18/17 06:00 09/18/17 06:00 Assessment/Plan Pyelonephritis Possible sepsis secondary to pyelonephritis Await final c/s result -- ? po levaquin 500mg daily x 14d
--- NOTE | 2017-09-18 20:51 | PN ---
Teaching Attending Note Name of Resident: Arcadio Gonzalez ATTENDING PHYSICIAN STATEMENT I saw and evaluated the patient. I reviewed the resident's note and discussed the case with the resident. I agree with the resident's findings and plan as documented. SUBJECTIVE: Patient is feeling better today, no acute distress. OBJECTIVE: Vital Signs Temperature 99.1 F 09/18/17 20:32 Pulse Rate 70 09/18/17 20:32 Respiratory Rate 18 09/18/17 20:32 Blood Pressure 131/84 09/18/17 20:32 O2 Sat by Pulse Oximetry (%) 98 09/18/17 20:34 CBCD WBC 9.6 K/mm3 (4.0-10.0) 09/18/17 06:00 RBC 4.03 M/mm3 (3.60-5.2) 09/18/17 06:00 Hgb 11.2 GM/dL (10.7-15.3) 09/18/17 06:00 Hct 32.4 % (32.4-45.2) 09/18/17 06:00 MCV 80.5 fl (80-96) 09/18/17 06:00 MCHC 34.5 g/dl (32.0-36.0) 09/18/17 06:00 RDW 20.7 % (11.6-15.6) H 09/18/17 06:00 Plt Count 191 K/MM3 (134-434) D 09/18/17 06:00 MPV 7.7 fl (7.5-11.1) 09/18/17 06:00 CMP Sodium 141 mmol/L (136-145) 09/18/17 06:00 Potassium 3.6 mmol/L (3.5-5.1) 09/18/17 06:00 Chloride 108 mmol/L (98-107) H 09/18/17 06:00 Carbon Dioxide 24 mmol/L (21-32) 09/18/17 06:00 Anion Gap 9 (8-16) 09/18/17 06:00 BUN 5 mg/dL (7-18) L 09/18/17 06:00 Creatinine 0.5 mg/dL (0.55-1.02) L 09/18/17 06:00 Creat Clearance w eGFR > 60 (>60) 09/18/17 06:00 Random Glucose 87 mg/dL (74-106) 09/18/17 06:00 Calcium 7.9 mg/dL (8.5-10.1) L 09/18/17 06:00 Total Bilirubin 0.4 mg/dL (0.2-1.0) 09/18/17 06:00 AST 21 U/L (15-37) 09/18/17 06:00 ALT 32 U/L (12-78) 09/18/17 06:00 Alkaline Phosphatase 77 U/L (45-117) 09/18/17 06:00 Total Protein 6.1 g/dl (6.4-8.2) L 09/18/17 06:00 Albumin 2.8 g/dl (3.4-5.0) L 09/18/17 06:00 Current Medications Generic Name Dose Route Start Last Admin Trade Name Freq PRN Reason Stop Dose Admin Acetaminophen 650 mg 09/17/17 02:53 09/17/17 20:52 Tylenol - PO 650 mg Q4H PRN Administration PAIN OR FEVER Enoxaparin Sodium 40 mg 09/17/17 10:00 09/18/17 09:17 Lovenox - SQ 40 mg DAILY SURINDER Administration Sodium Chloride 1,000 mls @ 150 mls/hr 09/17/17 03:27 09/18/17 17:39 Normal Saline - IV 150 mls/hr ASDIR SURINDER Administration Ceftriaxone Sodium 2 gm/ 100 mls @ 200 mls/hr 09/17/17 10:00 09/18/17 09:17 Dextrose IVPB 200 mls/hr DAILY SURINDER Administration Home Medications Medication Instructions Recorded NK [No Known Home Medication] 09/17/17 PE: per resident's note Laboratory Tests 09/16/17 09/18/17 21:30 06:00 WBC 12.2 H 9.6 Microbiology 09/16/17 21:27 Urine - Urine Clean Catch Urine Culture - Preliminary Lactose Fermenting Neg Bacilli 09/17/17 04:30 Blood - Peripheral Venous Blood Culture - Preliminary NO GROWTH OBTAINED AFTER 24 HOURS, INCUBATION TO CONTINUE FOR 4 DAYS. 09/17/17 04:30 Blood - Peripheral Venous Blood Culture - Preliminary NO GROWTH OBTAINED AFTER 24 HOURS, INCUBATION TO CONTINUE FOR 4 DAYS. ASSESSMENT AND PLAN: Patient is a 21yo young woman with recent hx of UTI s/p 7 day abx course with resolution of symptoms who presents with 1 day of Right flank plan and found to be septic (Tmax 100.2, HR107) due to having pyelonephritis with Right renal stones on US around 1cm. # s/p Sepsis due to pyelonephritis with 1cm Renal calculi on US, CT negative for any stones. Urology consulted, IVF of NS@150cc/hr, Ceftriaxone 2gm IVP Daily , f/u Urine and blood cultures, f/u Gonorrhea/Chlamydia . Pending culture sensitivity please follow , leukocytosis improved DVT Px: Lovenox FULL code possible discharge in am , please check with micro if the sensitivy resulted.
[2017-09-19] MEDS: ACETAMINOPHEN 325 MG TABLET (FP) PO PRN (00:28)
[2017-09-19] MEDS: SODIUM CHLORIDE 1,000 ML IV SCH ×3 (00:28→08:37)
[2017-09-19 08:01] LABS: HEMATOCRIT 29.3 % (32.4-45.2); HEMOGLOBIN 10.3 GM/dL (10.7-15.3); MCH 28.1 pg (25.7-33.7); MCHC 35.1 g/dl (32.0-36.0); MEAN CELL VOLUME 80.1 fl (80-96); MEAN PLT VOLUME 7.7 fl (7.5-11.1); PLATELET COUNT 168 K/MM3 (134-434); RBC 3.66 M/mm3 (3.60-5.2); RDW 20.5 % (11.6-15.6); WHITE BLOOD COUNT 5.4 K/mm3 (4.0-10.0)
[2017-09-19 08:23] LABS: ALBUMIN 2.5 g/dl (3.4-5.0); ANION GAP 5 (8-16); BILIRUBIN,TOTAL 0.3 mg/dL (0.2-1.0); BLOOD UREA NITROGEN 4 mg/dL (7-18); CALCIUM 7.4 mg/dL (8.5-10.1); CHLORIDE 113 mmol/L (98-107); CO2 25 mmol/L (21-32); CREATININE 0.4 mg/dL (0.55-1.02); GLUCOSE,RANDOM 88 mg/dL (74-106); POTASSIUM 3.4 mmol/L (3.5-5.1); SGOT/AST 14 U/L (15-37); SGPT/ALT 27 U/L (12-78); SODIUM 143 mmol/L (136-145); TOT PROT 5.5 g/dl (6.4-8.2)
[2017-09-19 08:24] LABS: ALK PHOS 77 U/L (45-117)
[2017-09-19 09:53] LABS: ANISOCYTOSIS 1+; PLATELET ESTIMATE NORMAL
[2017-09-19] MEDS ORDERED: DEXTROSE 5%-WATER 100 ML IVPB ONE (09:53)
[2017-09-19] MEDS: CEFTRIAXONE 2 GM in DEXTROSE 5%-WATER 100 ML IVPB SCH (10:00)
[2017-09-19] MEDS: ENOXAPARIN NA (PORCINE) 40 MG/0.4 ML DISP.SYRIN SQ SCH (10:01)
--- NOTE | 2017-09-19 14:21 | PN ---
Teaching Attending Note Name of Resident: Valentin Maldonado ATTENDING PHYSICIAN STATEMENT I saw and evaluated the patient. I reviewed the resident's note and discussed the case with the resident. I agree with the resident's findings and plan as documented. SUBJECTIVE: OBJECTIVE: Vital Signs Period Temp Pulse Resp BP Sys/Delcid Pulse Ox Last 24 Hr 97.9 F-99.5 F 65-83 18-18 117-137/62-84 98-99 Laboratory Results - last 24 hr 09/19/17 09/19/17 06:25 06:25 WBC 5.4 D RBC 3.66 Hgb 10.3 L Hct 29.3 L MCV 80.1 MCH 28.1 MCHC 35.1 RDW 20.5 H Plt Count 168 MPV 7.7 Neutrophils % No Result Required. Neutrophils % (Manual) 55.0 Band Neutrophils % 0.0 Lymphocytes % No Result Required. Lymphocytes % (Manual) 28.0 Monocytes % (Manual) 16 H Eosinophils % (Manual) 1.0 Basophils % (Manual) 0.0 Myelocytes % (Man) 0 Promyelocytes % (Man) 0 Blast Cells % (Manual) 0 Nucleated RBC % 1 H Metamyelocytes 0 Platelet Estimate Normal Anisocytosis 1+ Microcytosis 1+ Sodium 143 Potassium 3.4 L Chloride 113 H Carbon Dioxide 25 Anion Gap 5 L BUN 4 L Creatinine 0.4 L Creat Clearance w eGFR > 60 Random Glucose 88 Calcium 7.4 L Total Bilirubin 0.3 D AST 14 L ALT 27 Alkaline Phosphatase 77 Total Protein 5.5 L Albumin 2.5 L Current Medications Generic Name Dose Route Start Last Admin Trade Name Freq PRN Reason Stop Dose Admin Acetaminophen 650 mg 09/17/17 02:53 09/19/17 00:28 Tylenol - PO 650 mg Q4H PRN Administration PAIN OR FEVER Enoxaparin Sodium 40 mg 09/17/17 10:00 09/19/17 10:01 Lovenox - SQ 40 mg DAILY SURINDER Administration Sodium Chloride 1,000 mls @ 150 mls/hr 09/17/17 03:27 09/19/17 08:37 Normal Saline - IV 150 mls/hr ASDIR SURINDER Administration Ceftriaxone Sodium 2 gm/ 100 mls @ 200 mls/hr 09/17/17 10:00 09/19/17 10:00 Dextrose IVPB 200 mls/hr DAILY SURINDER Administration ASSESSMENT AND PLAN:
[2017-09-19 14:30] VITALS: BP 136/71; PULSE 72; TEMP 98.4
--- NOTE | 2017-09-19 15:51 | DS ---
Physical Exam: SUBJECTIVE: Patient seen and examined at bedside. No complaints at this time. Pt feels well; symptoms have resolved. OBJECTIVE: Vital Signs Period Temp Pulse Resp BP Sys/Delcid Pulse Ox Last 24 Hr 97.9 F-99.5 F 65-83 18-18 117-137/62-84 98-99 PHYSICAL EXAM GENERAL: The patient is awake, alert, and fully oriented, in no acute distress. HEAD: Normal with no signs of trauma. EYES: PERRL, extraocular movements intact, sclera anicteric, conjunctiva clear. ENT: Ears normal, nares patent, oropharynx clear without exudates, moist mucous membranes. NECK: Trachea midline, full range of motion, supple. LUNGS: Breath sounds equal, clear to auscultation bilaterally, no wheezes, no crackles, no accessory muscle use. HEART: Regular rate and rhythm, S1, S2 without murmur, rub or gallop. ABDOMEN: Soft, nontender, nondistended, normoactive bowel sounds, no guarding, no rebound, no hepatosplenomegaly, no masses. EXTREMITIES: 2+ pulses, warm, well-perfused, no edema. NEUROLOGICAL: Cranial nerves II through XII grossly intact. Normal speech, gait not observed. PSYCH: Normal mood, normal affect. SKIN: Warm, dry, normal turgor, no rashes or lesions noted. LABS Laboratory Results - last 24 hr 09/19/17 09/19/17 06:25 06:25 WBC 5.4 D RBC 3.66 Hgb 10.3 L Hct 29.3 L MCV 80.1 MCH 28.1 MCHC 35.1 RDW 20.5 H Plt Count 168 MPV 7.7 Neutrophils % No Result Required. Neutrophils % (Manual) 55.0 Band Neutrophils % 0.0 Lymphocytes % No Result Required. Lymphocytes % (Manual) 28.0 Monocytes % (Manual) 16 H Eosinophils % (Manual) 1.0 Basophils % (Manual) 0.0 Myelocytes % (Man) 0 Promyelocytes % (Man) 0 Blast Cells % (Manual) 0 Nucleated RBC % 1 H Metamyelocytes 0 Platelet Estimate Normal Anisocytosis 1+ Microcytosis 1+ Sodium 143 Potassium 3.4 L Chloride 113 H Carbon Dioxide 25 Anion Gap 5 L BUN 4 L Creatinine 0.4 L Creat Clearance w eGFR > 60 Random Glucose 88 Calcium 7.4 L Total Bilirubin 0.3 D AST 14 L ALT 27 Alkaline Phosphatase 77 Total Protein 5.5 L Albumin 2.5 L HOSPITAL COURSE: Date of Admission:09/17/17 Date of Discharge: 09/19/17 Pt is a 21 y/o F with PMH prior UTI who came to [facility] ED because of acute onset flank pain and nausea. Pt was found to have UTI. U/S showed equivocal 1mm stones , which were not visualized on CT. No obstruction was noted. Pt was seen by ID who continued Rocephin. Pt received 3 doses. Cx ultimately was positive E. coli . Pt was discharged with 7 d Keflex 500mg PO BID. Pt was given instructions to follow up with ID and PCP. Minutes to complete discharge: 30 Discharge Summary Reason For Visit: UTI, PYELONEPHRITIS Current Active Problems Kidney stones (Acute) Pyelonephritis (Acute) UTI (urinary tract infection) (Acute) Condition: Guarded - Instructions Diet, Activity, Other Instructions: You are being sent home with an oral antibiotic, Keflex. Take 500mg in the morning and before bed every day for 7 days. If your symptoms recur or if you develop any new symptoms such as fever, burning on urination or abdominal or back pain, please return to the emergency department immediately. Please make sure you follow up with your primary care doctor. Referrals: Valentin Maldonado RES [Resident] - 2 Weeks Disposition: HOME - Home Medications Comprehensive Discharge Medication List: Ambulatory Orders Cephalexin [Keflex] 500 mg PO BID #14 capsule 09/19/17 This patient is new to me today: No Emergency Visit: Yes ED Registration Date: 09/17/17 Care time: The patient presented to the Emergency Department on the above date and was hospitalized for further evaluation of their emergent condition. Critical Care patient: No - Discharge Referral Referred to [facility] No
== END 2017-09-19 16:33 | disposition home or self-care (01) | DRG 720 ==
LOC: JER 20:55 → JERBED 09-17 01:04 → J7W 09-17 03:10
PROVIDERS: ADMIT Internal Medicine; ATTEND Internal Medicine
DX: A41.9 Sepsis, unspecified organism (principal); N20.0 Calculus of kidney; N10 Acute pyelonephritis; B96.20 Unspecified Escherichia coli [E. coli] as the cause of diseases classified elsewhere
CPT/HCPCS: 36415; 74176-TC; 76775-TC; 80048; 80053; 81003; 81015; 84703; 85025; 87040; 87086; 87186; 87491; 87591; 99284-25; J7030